=== PATIENT | female | born 1965 | race Caucasian/White ===

== ENCOUNTER 2018-09-30 16:55 | Emergency (ER) | payer OTHER ==
[2018-09-30 16:56] VITALS: BMI 30.8
[2018-09-30 17:05] VITALS: BP 118/73; PULSE 77; RESP 20; TEMP 98.5; O2SAT 97
--- NOTE | 2018-09-30 17:59 | C.PDOC ---
History Of Present Illness 52 y/o female presents to the ED for medical evaluation of dry cough x 3 days with associated headache and sore throat. She admits to recent sick contacts including her sister that was diagnosed with flu. She states she received the flu shot this year. She denies any fever, chills, chest pain, SOB, nausea, vomiting, and abdominal pain. She denies any use of otc meds. In addition, she is complaining of chronic heel pain. She denies imaging or seeking medical attention for it in the past. She is able to ambulate. She den ies trauma, weakness, and parethesias. Chief Complaint (Nursing): Flu-like Symptoms History Per: Patient History/Exam Limitations: no limitations Onset/Duration Of Symptoms: Days (3) Current Symptoms Are (Timing): Still Present Location Of Pain: Throat Sick Contacts (Context): Family Member(s) Associated Symptoms: Sore Throat, Cough. denies: Fever, Chills, Neck Pain, Sinus Drainage, Myalgias, Nasal Congestion, Nausea, Vomiting, Diarrhea Ear Symptoms: Bilateral: None Past Medical History Reviewed: Historical Data, Nursing Documentation, Vital Signs Vital Signs: Last Vital Signs Temp 98.5 F 09/30/18 17:03 Pulse 77 09/30/18 17:03 Resp 20 09/30/18 17:03 BP 118/73 09/30/18 17:03 Pulse Ox 97 09/30/18 17:03 - Medical History PMH: Hypercholesterolemia (no medication) Surgical History: Cholecystectomy - [facility] LAPAROSCOPIC TOTAL ABDOMINAL HYSTERECTOMY (04/14/13) PERCUTAN NEEDLE BX OF THYROID GLAND (09/04/14) REMOVE BOTH FALLOP TUBES (04/14/13) Family History: States: Unknown Family Hx - Social History Hx Tobacco Use: No Hx Alcohol Use: No Hx Substance Use: No - Immunization History Hx Tetanus Toxoid Vaccination: No Hx Influenza Vaccination: No Hx Pneumococcal Vaccination: No Review Of Systems Constitutional: Negative for: Fever, Chills, Weakness ENT: Positive for: Throat Pain. Negative for: Ear Pain, Nose Discharge, Nose Congestion Cardiovascular: Negative for: Chest Pain Respiratory: Positive for: Cough (dry). Negative for: Shortness of Breath Gastrointestinal: Negative for: Nausea, Vomiting, Abdominal Pain Musculoskeletal: Positive for: Foot Pain (left) Skin: Negative for: Rash Neurological: Positive for: Headache. Negative for: Dizziness Physical Exam - Physical Exam Appears: Non-toxic, No Acute Distress Skin: Normal Color, Warm, Dry Head: Atraumatic, Normacephalic Eye(s): bilateral: Normal Inspection, PERRL Ear(s): Bilateral: Normal (TM intact AU; nonerythematous) Nose: Normal, No Discharge Oral Mucosa: Moist Tongue: Normal Appearing Lips: Normal Appearing Throat: Erythema (mild), No Exudate Neck: Normal ROM, Supple Lymphatic: No Adenopathy Chest: Symmetrical Cardiovascular: Rhythm Regular Respiratory: Normal Breath Sounds, No Wheezing Gastrointestinal/Abdominal: Soft, No Tenderness Extremity: Normal ROM, Tenderness (left heel), No Pedal Edema, No Calf Tenderness, Capillary Refill (less than 2 seconds), No Swelling Extremity: Bilateral: Atraumatic Pulses: Left Dorsalis Pedis: Normal, Right Dorsalis Pedis: Normal Neurological/Psych: Oriented x3, Normal Speech, Normal Cognition, Normal Motor, Normal Sensation ED Course And Treatment O2 Sat by Pulse Oximetry: 97 Medical Decision Making Medical Decision Making: viral URI and Heel Pain Tessalon perles given now- some improvement noted D/w patient diagnosis and advised her to continue Tessalon Perles 3 times a day as needed for cough and to alternate with Tylenol and Motrin prn fever She is to follow up with Podiatry for heel pain and take Naproxen twice a day as needed for pain She is also advised to follow up with PMD in 1-2 days patient verbalized understanding and is in agreement with plan patient is stable for discharge Disposition Counseled Patient/Family Regarding: Diagnosis, Need For Followup, Rx Given - Disposition Referrals: Babita Kang MD [Staff Provider] - Podiatry Clinic [Outside] Disposition: HOME/ ROUTINE Disposition Time: 17:59 Condition: STABLE Additional Instructions: Rest and Hydration is important Continue Tessalon Perles 3 times a day as needed for cough Alternate with Tylenol and Motrin if you develop fever Follow up with Podiatry for heel pain and take Naproxen twice a day as needed for pain Follow up with PMD in 1-2 days Return to ED if symptoms worsen Prescriptions: Benzonatate [Tessalon Perles] 100 mg PO TID #30 sgl Naproxen [Naprosyn] 500 mg PO BID #30 tablet Instructions: Viral Upper Respiratory Infection, Adult (DC), Heel Pain (Caused by Plantar Fasciitis) (DC), Viral Syndrome (DC) Forms: [facility] (Latvian), Work Excuse - Clinical Impression Clinical Impression: Viral URI with cough, Heel pain - PA / [employer] / Resident Statement MD/DO has reviewed & agrees with the documentation as recorded.
== END 2018-09-30 18:08 | disposition home or self-care (01) ==
LOC: C.ER 16:55
DX: J06.9 Acute upper respiratory infection, unspecified (principal); R05 Cough; M79.672 Pain in left foot